=== PATIENT | female | born 1985 | race Caucasian/White ===

== ENCOUNTER 2018-09-16 16:06 | Emergency (ER) | payer OTHER ==
[~2018-09-16] VITALS: Ht 167.6 cm; Wt 77.1 kg
[2018-09-16] MEDS ORDERED: LIDOCAINE PAIN1 EACH TOP (16:40)
[2018-09-16] MEDS ORDERED: MEDROLDOSEPACK PO (16:40)
[2018-09-16] MEDS ORDERED: NAPROSYN500 MG PO (16:40)
[2018-09-16] MEDS ORDERED: NORCO 5-325 TA1 EACH PO (16:40)
[2018-09-16 17:00] VITALS: BP 140/83
== END 2018-09-16 17:00 | disposition home or self-care (01) ==
LOC: M.ERS 16:06
DX: M54.5 Low back pain (principal); R25.2 Cramp and spasm; F17.210 Nicotine dependence, cigarettes, uncomplicated; Z91.040 Latex allergy status; Z88.8 Allergy status to other drugs, medicaments and biological substances; N80.9 Endometriosis, unspecified

== ENCOUNTER 2021-03-28 19:04 | Emergency (ER) | payer OTHER ==
[~2021-03-28] VITALS: Ht 167.6 cm; Wt 68.0 kg
[~2021-03-28 19:04] MED LIST: LIDOCAINE PAIN1 EACH TOP; MEDROLDOSEPACK PO; NAPROSYN500 MG PO; NORCO 5-325 TA1 EACH PO
[2021-03-28 19:16] VITALS: BP 130/78
[2021-03-28] MEDS ORDERED: APAP W/CODEINE1 TA2 PO (19:51)
[2021-03-28] MEDS ORDERED: PROAIR HFA8.5 GM INH (19:51)
== END 2021-03-28 19:55 | disposition home or self-care (01) ==
LOC: M.ERS 19:04
DX: J06.9 Acute upper respiratory infection, unspecified (principal); Z91.040 Latex allergy status; Z88.8 Allergy status to other drugs, medicaments and biological substances